=== PATIENT | female | born 1960 | race Hispanic/Latino ===

== ENCOUNTER 2020-12-31 20:26 | Emergency (ER) | payer MEDICARE, BC ==
[2020-12-31 21:10] LABS: Bilirubin Negative (Negative); Blood, Urine Negative (Negative); Clarity Clear (Clear); Glucose, Urine (Dipstick) Normal (Negative); Ketone, Urine Negative (Negative); Leukocyte Negative Leu/uL (Negative); Nitrite Negative (Negative); Protein, Urine (Dipstick) Negative (Neg-Trace); Specific Gravity, Urine 1.013 (1.002-1.036); Urobilinogen Normal mg/dL (Less than 2); pH, Urine 7.5 (5.0-9.0)
[2020-12-31 21:13] LABS: #Eosinphils 0.2 thou/uL (0.0-0.7); #Lymphocytes 3.2 thou/uL (1.20-3.40); #Monocytes 0.6 thou/uL (0.11-0.59); #Neutrophils 3.3 thou/uL (1.40-6.50); %Basophils 0.3 % (0.0-1.0); %Eosinophils 2.1 % (0.0-10.0); %Lymphocytes 43.9 % (21.0-51.0); %Neutrophils 45.7 % (42.0-75.0); Hemoglobin 12.9 g/dL (12.0-16.0); Mean Corpuscular HGB CONC 33.8 g/dL (32.0-36.0); Mean Corpuscular Hemoglobin 32.8 pg (27.0-31.0); Mean Corpuscular Volume 97.2 fL (78.0-98.0); Mean Platelet Volume 9.4 fL (7.4-10.4); Platelet Count 178 thou/uL (130-400); RBC Distribution Width 11.2 % (11.5-14.5); Red Blood Cell (RBC) Count 3.93 mill/uL (4.20-5.40); White Blood Cell (WBC) Count 7.3 thou/uL (4.8-10.8)
[2020-12-31 21:30] LABS: ALT (SGPT) 63 U/L (8-55); AST (SGOT) 65 U/L (5-34); Albumin 3.9 g/dL (3.4-4.8); Alkaline Phosphatase 163 U/L (40-110); Anion Gap 13 mmol/L (10-20); BUN (Urea Nitrogen) 16 mg/dL (9.8-20.1); Bilirubin, Total 0.4 mg/dL (0.2-1.2); Calc. Creatinine Clearance 0 mL/min (70-130); Carbon Dioxide 27 mmol/L (23-31); Chloride 105 mmol/L (98-107); Globulin 3.7 g/dL (2.4-3.5); Glucose 194 mg/dL (80-115); Potassium 4.5 mmol/L (3.5-5.1); Protein, Total 7.6 g/dL (5.8-8.1); Sodium 140 mmol/L (136-145)
[2020-12-31] MEDS ORDERED: Morphine 4 MG/ML VIAL ONE (22:41)
[2020-12-31] MEDS ORDERED: Ondansetron PF 4 MG/2 ML Vial ONE (22:41)
== END 2021-01-01 00:18 | disposition home or self-care (01) ==
LOC: ERS 20:26
DX: R10.9 Unspecified abdominal pain (principal); R74.01 Elevation of levels of liver transaminase levels
CPT/HCPCS: 36415; 74176; 76705; 80053; 81003; 83690; 85025; 96374; 96375; J2270; J2405

== ENCOUNTER 2023-04-14 07:42 | Outpatient (CLI) | payer MEDICARE, BC | END 2023-04-14 07:43 | disposition home or self-care (01) | LOC: ULT 07:42 | PROVIDERS: ATTEND Physician Assistant | DX: R74.01 Elevation of levels of liver transaminase levels (principal); R79.89 Other specified abnormal findings of blood chemistry | CPT/HCPCS: 76700 ==

== ENCOUNTER 2025-06-03 11:39 | Outpatient (CLI) | payer MEDICARE | END 2025-06-03 11:40 | disposition home or self-care (01) | LOC: BICCT 11:39 | PROVIDERS: ATTEND Orthopaedic Surgery | DX: M54.12 Radiculopathy, cervical region (principal) | CPT/HCPCS: 72125 ==

== ENCOUNTER 2025-06-25 10:14 | Outpatient (CLI) | payer BC, MEDICARE ==
[2025-06-25] MEDS ORDERED: Furosemide 40 MG (4 mL) VIAL ONE (10:45)
== END 2025-06-25 10:15 | disposition home or self-care (01) ==
LOC: NM 10:14
PROVIDERS: ATTEND Urology
DX: N13.30 Unspecified hydronephrosis (principal); R94.4 Abnormal results of kidney function studies
CPT/HCPCS: 78708; A4641; A9562; J1940